=== PATIENT | female | born 1975 | race Two or more races ===

== ENCOUNTER 2023-01-02 18:35 | Emergency (ER) | payer OTHER ==
[~2023-01-02] VITALS: Ht 157.5 cm; Wt 108.9 kg
[2023-01-02] MEDS ORDERED: NEURONTIN300 MG PO (19:23)
[2023-01-02] MEDS ORDERED: TOPAMAX25 M1 PO (19:24)
[2023-01-02] MEDS ORDERED: MUCINEX D ER 11 EACH PO (21:10)
== END 2023-01-02 21:18 | disposition home or self-care (01) ==
LOC: ER 18:35
DX: J00 Acute nasopharyngitis [common cold] (principal); Z91.041 Radiographic dye allergy status; Z88.8 Allergy status to other drugs, medicaments and biological substances